=== PATIENT | female | born 1980 | race African-American/Black ===

== ENCOUNTER 2018-01-01 11:52 | Observation (INO) | payer OTHER, SELFPAY ==
[2018-01-01 12:26] LABS: Urine Blood TRACE (NEG); Urine Glucose NEGATIVE (NEG); Urine Protein 2+ (NEG); Urine Specific Gravity 1.025 (1.005-1.030)
[2018-01-01 12:26] LABS: Urine Specific Gravity 1.025 (1.005-1.030)
[2018-01-01] MEDS ORDERED: ONDANSETRON 4 MG/2 ML VIAL ONE (12:28)
[2018-01-01] MEDS ORDERED: NA CHLORIDE 0.9% 1,000 ML ONE (12:28)
[2018-01-01] MEDS ORDERED: FAMOTIDINE 20 MG/2 ML VIAL IV ONE (12:28)
[2018-01-01 12:31] LABS: Urine Bacteria 20-50 /HPF (<20); Urine RBC <5 /HPF (NONE SEEN)
[2018-01-01 12:32] LABS: Urine Amorphous Sediment TRACE /HPF (NONE SEEN); Urine Culture Reflex Order NOT NEEDED
[2018-01-01 12:47] LABS: Absolute Lymphocytes (CBC) 2.4 K/uL (0.7-4.9); Absolute Neutrophil 10.6 K/uL (1.8-8.0); Basophils % 0.4 % (0-1.3); Eosinophils % 0.2 % (0-4.4); Hematocrit 42.4 % (36.0-45.0); MCH 29.3 pg (27.0-35.0); MCV 86.1 fL (80-100); MPV 8.2 fL (7.6-11.3); Monocytes % 7.4 % (3.3-12.3); RBC Red Blood Cell Count 4.93 M/uL (3.86-4.86)
[2018-01-01] MEDS ORDERED: KETOROLAC 30 MG/ML INJ ONE (12:52)
[2018-01-01 13:26] LABS: Albumin 3.4 g/dL (3.4-5.0); Bilirubin Direct 0.2 mg/dL (0-0.2)
--- NOTE | 2018-01-01 14:01 | RAD REPORT ---
EXAM DESCRIPTION: CT - Abdomen Pelvis W Contrast - 01/01/2018 1:44 pm CLINICAL HISTORY: Abdominal pain with vomiting for 2 days COMPARISON: none. TECHNIQUE: Computed axial tomography of the abdomen pelvis was obtained. 100 cc Isovue-300 was admin istered intravenously. Oral contrast was not requested which limits evaluation of bowel. All CT scans are performed using dose optimization technique as appropriate and may include automated exposure control or mA/KV adjustment according to patient size. FINDINGS: The gallbladder is distended. It contains increased density which may represents sludge or stones. The gallbladder wall is thickened. Stranding is present within the adjacent fat. Couple of vague low to intermediate density areas are present within the right lobe of the liver mandi uring 1 centimeter. Spleen, pancreas, adrenal and kidneys appear unremarkable. There is no evidence of diverticulitis. The appendix is normal. Small umbilical hernia is present. Small amount of free fluid is noted. IMPRESSION: Distended gallbladder with thickened wall and stranding within the adjacent fat compatib le with cholecystitis. Increased density within the gallbladder could either represent sludge or stones.
[2018-01-01] MEDS ORDERED: CEFTRIAXONE/SWI 1gm 1 GM/10 ML SYR ONE (14:27)
[2018-01-01] MEDS ORDERED: METRONIDAZOLE 500mg IVPB 500 MG/100 ML BAG IV ONE (14:27)
--- NOTE | 2018-01-01 14:47 | RAD REPORT ---
EXAM DESCRIPTION: US - Abdomen Exam Limited - 01/01/2018 2:37 pm CLINICAL HISTORY: Abdominal pain. COMPARISON: CT January 01, 2018 FINDINGS: The gallbladder is distended with a thickened wall and multiple stones. The biliary tree is normal caliber. IMPRESSION: Cholelithiasis with cholecystitis
--- NOTE | 2018-01-01 15:04 | EDPHYS ---
Physician Documentation [facility] Name: Falguni Crenshaw Age: 37 yrs Sex: Female : 1980 Arrival Date: 01/01/2018 Time: 11:55 Bed 14 Private MD: None, None ED Physician Thomas Raygoza HPI: 01/01 12:07 This 37 yrs old Black Female presents to ER via Ambulatory with complaints of Back cp Pain, Nausea/Vomiting. 12:07 The patient presents with pain that is acute, with no known mechanism of injury. The cp symptoms are located in the mid back area. Onset: The symptoms/episode began/occurred 3 day(s) ago. 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 - Social history:: Smoking status: Patient/guardian denies using tobacco. - Ebola Screening: : Patient negative for fever greater than or equal to 101.5 degrees Fahrenheit, and additional compatible Ebola Virus Disease symptoms Patient denies exposure to infectious person Patient denies travel to an Ebola-affected area in the 21 days before illness onset No symptoms or risks identified at this time. ROS: 12:10 Constitutional: Negative for body aches, chills, fever, poor PO intake. cp 12:10 Eyes: Negative for injury, pain, redness, and discharge. cp 12:10 ENT: Negative for drainage from ear(s), ear pain, sore throat, difficulty swallowing, difficulty handling secretions. 12:10 Cardiovascular: Negative for chest pain, edema, palpitations. 12:10 Respiratory: Negative for cough, shortness of breath, wheezing. 12:10 Abdomen/GI: Positive for abdominal pain, nausea, vomiting, anorexia, of the epigastric area, Negative for diarrhea, constipation, black/tarry stool, rectal bleeding. 12:10 Back: Positive for pain at rest, of the mid back area. 12:10 : Negative for urinary symptoms, pelvic pain. 12:10 Skin: Negative for cellulitis, rash. 12:10 Neuro: Negative for altered mental status, headache, weakness. 12:10 All other systems are negative. Exam: 12:15 Constitutional: The patient appears in no acute distress, alert, awake, cp non-diaphoretic, non-toxic, well developed, well nourished. 12:15 Head/Face: Normocephalic, atraumatic. cp 12:15 Eyes: Periorbital structures: appear normal, Conjunctiva: normal, no exudate, no injection, Sclera: no appreciated abnormality, Lids and lashes: appear normal, bilaterally. 12:15 ENT: External ear(s): are unremarkable, Nose: is normal, Mouth: Lips: moist, Oral mucosa: pink and intact, moist, Posterior pharynx: is normal, airway is patent, no erythema, no exudate. 12:15 Neck: ROM/movement: is normal, is supple, without pain, no range of motions limitations, no nuchal rigidity. 12:15 Chest/axilla: Inspection: normal, Palpation: is normal, no crepitus, no tenderness. 12:15 Cardiovascular: Rate: normal, Rhythm: regular. 12:15 Respiratory: the patient does not display signs of respiratory distress, Respirations: normal, no use of accessory muscles, no retractions, no splinting, no tachypnea, labored breathing, is not present, Breath sounds: are clear throughout, no decreased breath sounds, no stridor, no wheezing. 12:15 Abdomen/GI: Inspection: abdomen appears normal, Bowel sounds: active, all quadrants, Palpation: soft, in all quadrants, mild abdominal tenderness, in the epigastric area and right upper quadrant, rebound tenderness, is not appreciated, involuntary guarding, is not appreciated. 12:15 Back: pain, that is moderate, of the right mid back, ROM is normal. 12:15 Skin: cellulitis, is not appreciated, no rash present. 12:15 Neuro: Orientation: to person, place \T\ time. Mentation: is normal, Cerebellar function: is grossly normal, Motor: moves all fours, strength is normal, Sensation: is normal. Vital Signs: 11:59 BP 123 / 80; Pulse 106; Resp 16; Temp 97.4; Pulse Ox 100% on R/A; Weight 95.25 kg; aj Height 5 ft. 4 in. (162.56 cm); Pain 7/10; 12:47 Pulse 90; Resp 18; Pulse Ox 100% on R/A; Pain 7/10; em 13:56 BP 111 / 99; Pulse 84; Resp 17; Pulse Ox 100% on R/A; tw2 15:01 BP 111 / 76; Pulse 83; Resp 18; Pulse Ox 100% on R/A; Pain 0/10; mg2 11:59 Body Mass Index 36.05 (95.25 kg, 162.56 cm) aj MDM: 12:01 Patient medically screened. cp 13:00 Differential diagnosis: ruptured disc, Ureterolithiasis cholelithiasis, UTI, cp pyelonephritis. 14:55 Data reviewed: vital signs, nurses notes, lab test result(s), radiologic studies, CT cp scan, ultrasound. 15:00 Counseling: I had a detailed discussion with the patient and/or guardian regarding: the cp historical points, exam findings, and any diagnostic results supporting the discharge/admit diagnosis, lab results, radiology results, the need for further work-up and treatment in the hospital. 15:00 Response to treatment: the patient's symptoms have markedly improved after treatment. 01/01 12:02 Order name: Urine Microscopic Only; Complete Time: 12:58 cp 01/01 14:12 Interpretation: Normal except: UWBC 5-10; UBACT 20-50; SQEPI 20-50. cp 01/01 12:21 Order name: Urine Dipstick--Ancillary (enter results); Complete Time: 12:58 ag 01/01 14:10 Interpretation: Normal except: UKET 1+; UBLD TRACE; UPROT 2+; UESTR TRACE. cp 01/01 12:21 Order name: Amylase, Serum; Complete Time: 14:09 cp 01/01 12:21 Order name: Basic Metabolic Panel; Complete Time: 14:09 cp 01/01 14:09 Interpretation: Normal except: K 3.0; GFR 68. cp 01/01 12:21 Order name: CBC with Diff; Complete Time: 12:58 cp 01/01 14:11 Interpretation: Normal except: WBC 14.1; RBC 4.93; RDW 15.3; CAILIN% 75.0; NEUT A 10.6. cp 01/01 12:21 Order name: Creatinine for Radiology; Complete Time: 14:09 cp 01/01 12:21 Order name: Hepatic Function; Complete Time: 14:09 cp 01/01 14:10 Interpretation: Normal except: GLOB 4.6; A/G 0.7. cp 01/01 12:21 Order name: Lipase; Complete Time: 14:09 cp 01/01 12:23 Order name: Urine --Ancillary (enter results) ag 01/01 12:59 Order name: CT Abd/Pelvis - W/Contrast: no oral contrast; Complete Time: 14:09 cp 01/01 14:13 Order name: US Abdomen Limited; Complete Time: 14:50 cp 01/01 12:02 Order name: Urine Dipstick-Ancillary (obtain specimen); Complete Time: 12:15 cp 01/01 12:02 Order name: Urine Test (obtain specimen); Complete Time: 12:15 cp 01/01 12:21 Order name: IV Saline Lock; Complete Time: 12:50 cp 01/01 12:21 Order name: Labs collected and sent; Complete Time: 12:51 cp 01/01 14:13 Order name: NPO; Complete Time: 14:41 cp Administered Medications: 12:40 Drug: NS 0.9% 1000 ml Route: IV; Rate: 1 bolus; Site: right antecubital; em 14:00 Follow up: Response: No adverse reaction; IV Status: Completed infusion; IV Intake: tw2 1000ml 12:46 Not Given (Patient Refused): Pepcid 20 mg IVP once em 12:46 Not Given (Patient Refused): Zofran 4 mg IVP once; over 2 minutes em 12:50 Drug: TORadol 30 mg Route: IVP; Site: right antecubital; tw2 14:20 Follow up: Response: No adverse reaction; Pain is decreased tw2 14:25 Drug: Rocephin - (cefTRIAXone) 1 grams {Note: IVP available only, provider aware..} tw2 Route: IVPB; Infused Over: 5 mins; Site: right antecubital; 14:30 Follow up: Response: No adverse reaction; IV Status: Completed infusion tw2 14:30 Drug: metroNIDAZOLE 500 mg Volume: 100 ml; Route: IVPB; Infused Over: 30 mins; Site: tw2 right antecubital; 15:25 Follow up: Response: No adverse reaction; IV Status: Completed infusion mg2 15:02 Not Given (Physician Discretion): Potassium Chloride 40 mEq PO once cp 15:11 Drug: Potassium Chloride 20 mEq Route: IV; Rate: calculated rate; Site: right mg2 antecubital; 15:25 Follow up: Response: No adverse reaction; IV Status: Infusion continued upon admission mg2 Disposition: 15:36 Co-signature as Attending Physician, Thomas Raygoza MD. rn Disposition: 01/01/18 15:04 Hospitalization ordered by Sea Shepard for Observation. Preliminary diagnosis is Cholecystitis. - Bed requested for Operating Room. - Status is Observation. mg2 - Condition is Stable. - Problem is new. - Symptoms have improved. UTI on Admission? No Signatures: Dispatcher [employer] EDMS Promise Guzman, RN RN aj Chance Jensen, RACK PUSHER RACK PUSHER em Thomas Raygoza MD MD rn Page, Corey, PA PA cp Mimi Luis RN RN tw2 Braeden Torres RN RN mg2 Corrections: (The following items were deleted from the chart) 15:25 15:04 Hospitalization Ordered by Sea Shepard MD for Observation. Preliminary diagnosis cp is Cholecystitis. Bed requested for Telemetry/MedSurg (observation). Status is Observation. Condition is Stable. Problem is new. Symptoms have improved. UTI on Admission? No. cp 15:28 15:25 01/01/2018 15:04 Hospitalization Ordered by Sea Shepard MD for Observation. mg2 Preliminary diagnosis is Cholecystitis. Bed requested for Operating Room. Status is Observation. Condition is Stable. Problem is new. Symptoms have improved. UTI on Admission? No. cp
--- NOTE | 2018-01-01 15:04 | ER ---
Nurse's Notes [facility] Name: Falguni Crenshaw Age: 37 yrs Sex: Female : 1980 Arrival Date: 01/01/2018 Time: 11:55 Bed 14 Private MD: None, None Diagnosis: Cholecystitis Presentation: 01/01 11:57 Presenting complaint: Patient states: Low back pain with intermittent vomiting for 2 aj days. Patient also reports epigastric discomfort. Transition of care: patient was not received from another setting of care. Onset of symptoms was December 30, 2017. Risk Assessment: Do you want to hurt yourself or someone else? Patient reports no desire to harm self or others. Initial Sepsis Screen: Does the patient meet any 2 criteria? No. Patient's initial sepsis screen is negative. Does the patient have a suspected source of infection? No. Patient's initial sepsis screen is negative. Care prior to arrival: None. 11:57 Method Of Arrival: Ambulatory aj 11:57 Acuity: NILESH 3 aj Triage Assessment: 11:59 General: Appears in no apparent distress. comfortable, Behavior is calm, cooperative, aj appropriate for age. Pain: Complains of pain in low back area and epigastric area Pain currently is 7 out of 10 on a pain scale. Neuro: Level of Consciousness is awake, alert, obeys commands, Oriented to person, place, time, situation, Appropriate for age. Cardiovascular: Capillary refill < 3 seconds in bilateral fingers Patient's skin is warm and dry. Respiratory: Airway is patent Respiratory effort is even, unlabored, Respiratory pattern is regular, symmetrical. GI: Reports epigastric pain, nausea, vomiting. Derm: Skin is intact, is healthy with good turgor, Skin is pink, warm \\T\\ dry. normal. Musculoskeletal: Circulation, motion, and sensation intact. Range of motion: Reports pain in low back area. 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 - Social history:: Smoking status: Patient/guardian denies using tobacco. - Ebola Screening: : Patient negative for fever greater than or equal to 101.5 degrees Fahrenheit, and additional compatible Ebola Virus Disease symptoms Patient denies exposure to infectious person Patient denies travel to an Ebola-affected area in the 21 days before illness onset No symptoms or risks identified at this time. Screenin:43 Abuse screen: Denies threats or abuse. Nutritional screening: No deficits noted. em Tuberculosis screening: No symptoms or risk factors identified. Fall Risk None identified. Assessment: 12:15 General: Appears in no apparent distress. comfortable, Behavior is calm, cooperative. em Pain: Complains of pain in low back area Pain does not radiate. Pain began 2-3 days ago. Neuro: Level of Consciousness is awake, alert, obeys commands, Oriented to person, place, time. Cardiovascular: Denies chest pain, shortness of breath, Capillary refill < 3 seconds Patient's skin is warm and dry. Respiratory: Airway is patent Respiratory effort is even, unlabored, Respiratory pattern is regular, symmetrical. GI: Abdomen is round Reports nausea, vomiting, 1 time today Patient currently denies abdominal pain, diarrhea. : Denies burning with urination. EENT: No signs and/or symptoms were reported regarding the EENT system. Derm: Skin is intact, Skin is pink, warm \\T\\ dry. Musculoskeletal: Range of motion: intact in all extremities. 12:40 Reassessment: Patient appears in no apparent distress at this time. pt refuse Zofran em and Pepcid, states "I don't feel that I need it now. I would like something for pain" rates pain 7/10 currently, ERNST Goldman notified, new medication orders received. 13:57 Reassessment: Patient appears in no apparent distress at this time. No changes from tw2 previously documented assessment. Patient and/or family updated on plan of care and expected duration. Pain level reassessed. Patient is alert, oriented x 3, equal unlabored respirations, skin warm/dry/pink. Patient states feeling better. Patient states symptoms have improved. 14:21 Reassessment: US at bedside at this time. tw2 Vital Signs: 11:59 BP 123 / 80; Pulse 106; Resp 16; Temp 97.4; Pulse Ox 100% on R/A; Weight 95.25 kg; aj Height 5 ft. 4 in. (162.56 cm); Pain 7/10; 12:47 Pulse 90; Resp 18; Pulse Ox 100% on R/A; Pain 7/10; em 13:56 BP 111 / 99; Pulse 84; Resp 17; Pulse Ox 100% on R/A; tw2 15:01 BP 111 / 76; Pulse 83; Resp 18; Pulse Ox 100% on R/A; Pain 0/10; mg2 11:59 Body Mass Index 36.05 (95.25 kg, 162.56 cm) ED Course: 11:55 Patient arrived in ED. mr 11:55 None, None is Private Physician. mr 11:59 Triage completed. aj 11:59 Jones Poe PA is PHCP. cp 11:59 Thomas Raygoza MD is Attending Physician. cp 11:59 Arm band placed on right wrist. Patient placed in an exam room. aj 12:15 Urine collected: clean catch specimen, tamara colored. dh3 12:22 Chance Jensen LVN is Primary Nurse. em 12:35 Initial lab(s) drawn, by ak, sent to lab. Inserted saline lock: 20 gauge in right em antecubital area, using aseptic technique. Blood collected. Patient maintains SpO2 saturation greater than 95% on room air. 12:43 Patient has correct armband on for positive identification. Pulse ox on. NIBP on. em 12:50 Primary Nurse role handed off by Chance Jensen LVN tw2 12:50 Mimi Luis RN is Primary Nurse. tw2 13:44 CT Abd/Pelvis - W/Contrast: no oral contrast In Process Unspecified. EDMS 14:32 US Abdomen Limited In Process Unspecified. EDMS 14:32 Ultrasound completed. Patient tolerated well. lc3 15:03 Sea Shepard MD is Hospitalizing Provider. cp 15:03 Report given to JES Tsang. tw2 15:27 No provider procedures requiring assistance completed. Patient admitted, IV remains in mg2 place. Administered Medications: 12:40 Drug: NS 0.9% 1000 ml Route: IV; Rate: 1 bolus; Site: right antecubital; em 14:00 Follow up: Response: No adverse reaction; IV Status: Completed infusion; IV Intake: tw2 1000ml 12:46 Not Given (Patient Refused): Pepcid 20 mg IVP once em 12:46 Not Given (Patient Refused): Zofran 4 mg IVP once; over 2 minutes em 12:50 Drug: TORadol 30 mg Route: IVP; Site: right antecubital; tw2 14:20 Follow up: Response: No adverse reaction; Pain is decreased tw2 14:25 Drug: Rocephin - (cefTRIAXone) 1 grams {Note: IVP available only, provider aware..} tw2 Route: IVPB; Infused Over: 5 mins; Site: right antecubital; 14:30 Follow up: Response: No adverse reaction; IV Status: Completed infusion tw2 14:30 Drug: metroNIDAZOLE 500 mg Volume: 100 ml; Route: IVPB; Infused Over: 30 mins; Site: tw2 right antecubital; 15:25 Follow up: Response: No adverse reaction; IV Status: Completed infusion mg2 15:02 Not Given (Physician Discretion): Potassium Chloride 40 mEq PO once cp 15:11 Drug: Potassium Chloride 20 mEq Route: IV; Rate: calculated rate; Site: right mg2 antecubital; 15:25 Follow up: Response: No adverse reaction; IV Status: Infusion continued upon admission mg2 Intake: 14:00 IV: 1000ml; Total: 1000ml. tw2 Outcome: 15:04 Decision to Hospitalize by Provider. cp 15:26 Admitted to OR accompanied by nurse, via wheelchair, on monitor. mg2 15:26 Admitted to OR Report called to OR Nurse 15:26 Condition: stable 15:26 Instructed on the need for admit, Demonstrated understanding of instructions. 15:28 Patient left the ED. mg2 Signatures: Dispatcher [employer] Promise Dave, RN Anette Theodore mr Jensen, Chance, SPECIAL POPULATION PARAPROFESSIONAL SPECIAL POPULATION PARAPROFESSIONAL Jones Schumacher PA PA cp Jhon Vinson Tara, RN RN tw2 Wendy Quezada [facility] Braeden Torres RN RN mg2
[2018-01-01] MEDS ORDERED: POTASSIUM CL SA 10 MEQ TAB PO ONE (15:08)
[2018-01-01] MEDS ORDERED: MORPHINE 4 MG/ML SYR IV PRN (15:08)
[2018-01-01] MEDS ORDERED: ONDANSETRON 4 MG/2 ML VIAL IV PRN ×2 (15:08→17:16)
[2018-01-01] MEDS ORDERED: KCL 20 MEQ/100 mL IVPB 20 MEQ/100 ML BAG IV ONE (15:09)
[2018-01-01] MEDS ORDERED: Ringers Lactate 1,000 ML IV ONE (15:39)
[2018-01-01] MEDS ORDERED: SUCCINYLCHOLINE 20 MG/ML (10 ML) IV ONE (15:59)
[2018-01-01] MEDS ORDERED: NA CHLORIDE 0.9% 1,000 ML IV SCH (16:00)
[2018-01-01] MEDS ORDERED: PROPOFOL 200 MG/20 ML VIAL IV ONE (16:03)
[2018-01-01] MEDS ORDERED: MIDAZOLAM HCL 2 MG/2 ML INJ ONE (16:03)
[2018-01-01] MEDS ORDERED: FENTANYL CITR 250 MCG/5 ML ONE (16:03)
[2018-01-01] MEDS ORDERED: ROCURONIUM 50 MG/5 ML VIAL IV ONE (16:03)
[2018-01-01] MEDS ORDERED: GLYCOPYRROLATE 0.2 MG/ML SYR ONE ×2 (16:58)
[2018-01-01] MEDS ORDERED: NEOSTIGMINE 1 MG/ML -5 ML SYRINGE ONE (16:58)
[2018-01-01] MEDS ORDERED: ONDANSETRON HCL 40 MG/20 ML VIAL ONE (17:06)
--- NOTE | 2018-01-01 17:12 | P.OP ---
Preoperative diagnosis: Acute Cholecystitis and Cholelethiasis Postoperative diagnosis: same Primary procedure: Lap Mabel Anesthesia: General Estimated blood loss: min Specimen: GB Findings: as above Complications: None Transferred to: Recovery Room Condition: Good
[2018-01-01] MEDS ORDERED: HYDROMORPHONE HCL 1 MG/ML INJ IV PRN (17:16)
[2018-01-01] MEDS ORDERED: CEFOXITIN 1 GM in NA CHLORIDE 0.9% 100 ML IVPB SCH (18:00)
[2018-01-01 18:52] VITALS: BMI 37.8
[2018-01-01] MEDS: CEFOXITIN/SWI 1gm 1 GM/10 ML SYR IVP SCH (18:55)
--- NOTE | 2018-01-01 20:58 | PREOPHP ---
Date of Admission: 01/01/2018 Chief Complaint: Abdominal pain. History Of Present Illness: The patient is a 37-year-old female, who comes in with 3-day history of right upper quadrant back pain associated with nausea, vomiting, bloating, belching, and heartburn. Denies diarrhea, constipation, blood in her stool. No dysuria or hematuria. No sore throat, runny n ose, cough, headaches, dizziness, chest pain; just some chills and fever subjectively. Review of Systems: Otherwise, unremarkable. Past Medical History: Negative. Past Surgical History: Negative. Allergies: NO ALLERGIES. Social History: The patient denies smoking or drinking. Family History: Negative. Physical Examination: Vital Signs: Stable. Afebrile. General: Currently, awake, alert, and oriented x3. Head and Neck: No evidence of icterus. Cranial nerves 2 through 12 are grossly within normal limits . No neck masses. No JVD. Throat clear. Neck is supple. Chest: Clear. Heart: S1, S2. Abdomen: Soft, nondistended. Tenderness in the right upper quadrant. No peritonitis. Extremities: Adequately perfused. Nontender. Neuro: Nonfocal. Diagnostic Data: CT scan of the abdomen and pelvis as well as the ultrasound is consistent with acut e cholecystitis and cholelithiasis. Laboratory Data: White count is 14.1. LFTs, amylase, lipase are within normal limits. Assessment: Acute cholecystitis and cholelithiasis. Plan: Admit n.p.o., IV fluid, IV antibiotic, to the OR for lap maria guadalupe, possible open. The patient an d family understand the risks, benefits, and alternatives and agrees to procedure. /MODL Voice ID: [id number]
[2018-01-02] MEDS: CEFOXITIN/SWI 1gm 1 GM/10 ML SYR IVP SCH ×2 (00:13→05:59)
--- NOTE | 2018-01-02 03:52 | OP ---
Date of Procedure: 01/01/2018 Surgeon: Sea Shepard MD Preoperative Diagnoses: Acute cholecystitis and cholelithiasis. Postoperative Diagnoses: Acute cholecystitis and cholelithiasis. Procedure: Laparoscopic cholecystectomy. Estimated Blood Loss: Minimal. Specimen: Gallbladder. Findings: As above. Anesthesia: General. Complications: None. Disposition: The patient tolerated the procedure in stable condition and was taken to Recovery in go od general condition. Procedure In Detail: The patient was brought to the OR and placed in supine position. General anest hesia was begun. The patient was prepped and draped in the usual sterile fashion. Marcaine 0.5% was infiltrated locally. A 15-blade was used to make a 2-cm supraumbilical midline incision. Subcutane ous tissue was divided. The fascia was identified and divided. A #1 Vicryl stay suture was placed. Peritoneal cavity was entered with sharp and blunt dissection. A 12-mm trocar was placed into the p eritoneal cavity under direct vision. Pneumoperitoneum was established, and then three 5-mm trocars were placed, one in the epigastrium just to the right of midline and two in the right subcostal regio n. Laparoscopy revealed distention of the gallbladder which was aspirated, and then fundus was retra cted superiorly. There were some adhesions, taken down with sharp and blunt dissection. Bleeding wa s controlled with cautery. Then, the fundus and infundibulum were identified, retracted inferolatera lly. Cystic duct and cystic artery were clearly identified with blunt dissection. Clips were placed . Both structures were divided. Cautery was used to remove the gallbladder from the liver bed. The gallbladder was very, very large; and therefore, it was placed in the EndoCatch bag and the fascial incision had to be extended to allow for evacuation of the gallbladder, which was done safely, and th en pneumoperitoneum was reestablished. Right upper quadrant was irrigated. Effluent was clear. No evidence of bleeding or bowel injury or bile leakage appreciated. Subsequently, all trocars were rem bella under direct vision. Stay sutures were tied to each other to reapproximate the fascial defect, and the larger opening was also closed with extra #1 Vicryl sutures. Then, complete coverage of the fascial defect was accomplished. Wound was irrigated and bleeding controlled with cautery. A 3-0 ch romic was used to approximate the subcutaneous tissue and khris used to close the skin. Sterile dr essing was applied. The patient was awakened and taken to Recovery in good general condition. JOELLE/CHRISTIAN Voice ID: [id number] Report ID: [id number]
[2018-01-02] MEDS: HYDROCODONE/APAP 7.5/325 MG TAB PO PRN ×2 (04:15→16:24)
[2018-01-02 05:09] LABS: Absolute Monocytes 0.8 K/uL (0.1-1.3); Absolute Neutrophil 10.2 K/uL (1.8-8.0); Basophils % 0.5 % (0-1.3); Eosinophils % 0.2 % (0-4.4); Hematocrit 37.1 % (36.0-45.0); MCH 30.1 pg (27.0-35.0); MCV 86.4 fL (80-100); MPV 8.3 fL (7.6-11.3); Monocytes % 6.3 % (3.3-12.3); RBC Red Blood Cell Count 4.29 M/uL (3.86-4.86)
[2018-01-02 05:25] LABS: Bilirubin Direct 0.3 mg/dL (0-0.2); Bilirubin Total 1.2 mg/dL (0.2-1.0); Potassium 3.2 mmol/L (3.5-5.1)
[2018-01-02] MEDS ORDERED: POTASSIUM 25 MEQ EFFERV TAB PO ONE (06:12)
[2018-01-02 08:55] VITALS: O2SAT 94
[2018-01-02 12:55] VITALS: BP 119/64; TEMP 97
== END 2018-01-02 16:46 | disposition home or self-care (01) ==
LOC: ER 11:52 → UNDOADMOB 15:07 → OR 15:07 → ERHOLD 15:07 → 2ND 15:08
PROVIDERS: ADMIT Surgery; ATTEND Surgery
PROC: 0FT44ZZ Resection of Gallbladder, Percutaneous Endoscopic Approach (ICD-10-PCS; principal; 2018-01-01 15:00)
DX: K80.00 Calculus of gallbladder with acute cholecystitis without obstruction (principal); E66.9 Obesity, unspecified; Z68.37 Body mass index [BMI] 37.0-37.9, adult
CPT/HCPCS: 36415; 74177; 76705; 80048; 80076; 81003; 81015; 81025; 82150; 83690; 84132; 85025; 88304; 96361; 96365; 96375; 99285; G0378; J0330; J0696; J2250; J2405; J2710; J7030; Q9967

== ENCOUNTER 2020-05-05 12:34 | Observation (INO) | payer BC, SELFPAY ==
--- OUTSIDE RECORDS SUMMARY | 2020-05-05 12:36 | XMS REPORT | Summary of Care ---
:1980 Author Organization [facility] Address [address] [place] [address] Care Team Providers Name Role Phone Pcp, Patient Does Not Have A Primary Care Provider +1-000-00 0-0000 Reason for Visit Reason Comments VAGINAL ITCHING Encounter Details Date Type Department Care Team Description 03/10/2020 Office Visit [facility] Women's VanIsi huggins Tric homoniasis (Primary Dx); Healthcare- [place] PA-C Vaginal discharge; [address] [facility] [address], [address] Screening examination for STD (sexually transmitted disease) [place], [place] [address] [address] [place], [place] [phone] [address] Allergies No Known Allergiesdocumented as of this encounter (statuses as of 03/10/2020) Medications Medication Sig Dispensed Refills Start Date End Date Status Ibuprofen (ADVIL Take 200 mg by 0 Active LIQUI-GEL) 200 mg mouth as needed. capsule miconazole 100 mg Insert 1 7 Suppository 0 08/06/2019 Active vaginal Suppository into suppositoryIndicatio vagina at ns: Vaginal bedtime. discharge, Itching metroNIDAZOLE 500 mg Take 1 tablet by 14 tablet 0 08/14/2019 Active tabletIndications: mouth every 12 Trichomoniasis (twelve) hours. miconazole 2 % Insert 1 45 g 0 03/10/2020 Acti ve vaginal Applicator into creamIndications: vagina at Itching bedtime. documented as of this encounter (statuses as of 03/10/2020) Active Problems Problem Noted Date Morbid obesity with body mass index of 40.0-49.9 03/10 documented as of this encounter (statuses as of 03/10/2020) Social History Tobacco Use Types Packs/Day Years Used Date Never Smoker Smokeless Tobacco: Never Used Alcohol Use Drinks/Week oz/Week Comments Not Currently 0 Standard drinks or equivalent 0.0 Sex Assigned at Date Recorded Not on file documented as of this encounter Last Filed Vital Signs Vital Sign Reading Time Taken Comments Blood Pressure 127/81 03/10/2020 2:44 PM CDT Pulse 91 03/10/2020 2:44 PM CDT Temperature 36.8 C (98.2 F) 03/10/2020 2:44 PM CDT Respiratory Rate 18 03/10/2020 2:44 PM CDT Oxygen Saturation - - Inhaled Oxygen Concentration - - Weight 113.4 kg (250 lb) 03/10/2020 2:44 PM CDT Height 165.1 cm (5' 5") 03/10/2020 2:44 PM CDT Body Mass Index 41.6 03/10/2020 2:44 PM CDT documented in this encounter Progress Notes Isi Montoya PA-C - 03/10/2020 2:15 PM CDT Chief complaint: Chief Complaint Patient presents with VAGINAL ITCHING HPI Falguni Crenshaw is a 39 year old female coming in concerned about vaginal itching and vaginaldischarge. Patient reports having some vaginal discomfort and some pelvic pain. Patient reports vaginal discharge is pink and she has noticed some spotting. Patient reports she is not suppose to be on her period. Patient was treated for trich on 08/13/2019 and partner was also treated. Patient has not been back for ANNE. Patient denies any dysuria, hematuria. Patient is sexually active and reports using condoms. Patient denies any new soaps, detergents, creams, body washes. Patient denies any excessive sweating. Patient reports when she wipes she notices blood/spotting. Histories OB History Para Term AB Living 4 2 1 1 2 2 SAB TAB Ectopic Multiple Live Births 2 2 # Outcome Date GA Lbr Arthur/2nd Weight Sex Delivery Anes PTL Lv 4 1927 [place] 3 SAB 2 SAB 1 Term [place] Past Medical History: Diagnosis Date Anemia Family History Problem Relation Age of Onset No Significant Medical Problems Mother Hypertension Father Cancer Paternal Aunt unknown Other - see comments Paternal Aunt Lupus Cancer Paternal Grandmother unknown Family Status Relation Name Status Mo Alive Fa Alive PAunt (Not Specified) PGMo (Not Specified) Past Surgical History: Procedure Laterality Date CHOLECYSTECTOMY 2018 Social History Socioeconomic History Marital status: Single Spouse name: Not on file Number of children: Not on file Years of education: 14 Highest education level: Not on file 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 Social Needs Financial resource strain: Not on file Food insecurity Worry: Not on file Inability: Not on file Transportation needs Medical: Not on file Non-medical: Not on file Tobacco Use Smoking status: Never Smoker Smokeless tobacco: Never Used Substance and Sexual Activity Alcohol use: Not Currently Alcohol/week: 0.0 standard drinks Drug use: No Sexual activity: Yes Partners: Male control/protection: Condom Lifestyle Physical activity Days per week: Not on file Minutes per session: Not on file Stress: Not on file Relationships Social connections Talks on phone: Not on file Gets together: Not on file Attends confucianist service: Not on file Active member of club or organization: Not on file Attends meetings of clubs or organizations: Not on file Relationship status: Not on file Intimate partner violence Fear of current or ex partner: Not on file Emotionally abused: Not on file Physically abused: Not on file Forced sexual activity: Not on file Other Topics Concern Service Not Asked Blood Transfusions Not Asked Caffeine Concern No Comment: D/C Carbonated drinks two months ago Occupational Exposure Not Asked Hobby Hazards Not Asked Sleep Concern Not Asked Stress Concern Not Asked Weight Concern Not Asked Special Diet Not Asked Back Care Not Asked Exercise Not Asked Bike Helmet Not Asked Seat Belt Yes Self-Exams No Social History Narrative Denies any physical abuse in the home No animals in the home Buddhist Preference Orthodoxy Social History Substance and Sexual Activity Sexual Activity Yes Partners: Male control/protection: Condom Labs none Radiology none Allergies Falguni has No Known Allergies. Medications Falguni has a current medication list which includes the following prescription(s): metronidazole, miconazole, and ibuprofen. Review of Systems Constitutional: Negative for appetite change, fatigue and fever. HENT: Negative for rhinorrhea and sore throat. Eyes: Negative for pain and itching. Respiratory: Negative for cough, chest tightness and shortness of breath. Breasts: Negative for discharge, mass and pain. Cardiovascular: Negative for chest pain, palpitations and leg swelling. Gastrointestinal: Negative for abdominal pain, constipation, diarrhea and nausea. Genitourinary: Positive for vaginal bleeding, vaginal pain and pelvic pain. Negative for bladder incontinence, dysuria, vaginal discharge and difficulty urinating. Musculoskeletal: Negative for gait problem and myalgias. Skin: Negative for rash. Neurological: Negative for dizziness and headaches. Psychiatric/Behavioral: Negative for suicidal ideas. The patient is not nervous/anxious. Endocrine: Negative for hair loss. BP 127/81 (BP Location: Left arm, Patient Position: Sitting, BP CUFF SIZE: Adult Large) | Pulse 91| Temp 36.8 C (98.2 F) (Oral) | Resp 18 | Ht 5' 5" (1.651 m) | Wt 250 lb (113.4 kg) | LMP 02/11/2020 (Within Days) | BMI 41.60 kg/m Pregravid BMI: Could not be calculated Physical Exam Vitals reviewed. Constitutional: She is oriented to person, place, and time. Her body habitus is obese. Neck: No mass. No thyromegaly palpated. Cardiovascular: Regular rate and rhythm. Pulmonary/Chest: Normal inspiratory effort. Abdominal: Abdomen is soft. No tenderness present. No hernia palpated or inspected. Neuro/Psychiatric: She has a normal mood and affect. She is oriented to person, place, and time. Skin: Skin normal. No lesion and no rash present. External genitalia: Normal external genitalia appropriate for age. No labial lesion. Urethral meatus: Normal urethral meatus Urethra: Normal urethra. Bladder: Normal bladder Vagina:Vaginal discharge (bloody/pink) found. Cervix: Normal cervix. No tenderness and no discharge present. Uterus: Uterus is non-tender. Normal uterus Adnexa: Right adnexa without tenderness or mass. Left adnexa without tenderness or mass. Normal leftadnexa and normal right adnexa Assessment/Plan Trichomoniasis (primary encounter diagnosis) Plan: GALV ONLY - VAGINAL PATHOGENS BY NUCLEIC ACID TESTING ANNE collected today Vaginal discharge Plan: GALV ONLY - VAGINAL PATHOGENS BY NUCLEIC ACID TESTING Itching Plan: GALV ONLY - VAGINAL PATHOGENS BY NUCLEIC ACID TESTING, miconazole 2 % vaginal cream Washing and hygiene discussed. Screening examination for STD (sexually transmitted disease) Plan: GC & CHLAMYDIA AMPLIFIED ASSAY Return to clinic prn WWE. Discussed treatment options. Medications as ordered. Reviewed patient instructions and provided printed copy. This visit did not involve counseling and coordination that comprised more than 50% of the visit time. Isi Montoya PA-C 03/10/2020 3:22 PM documented in this encounter Plan of Treatment Name Type Priority Associated Diagnoses Order S chedule GALV ONLY - VAGINAL LAB Routine Trichomonias is Ordered: 03/10/2020 PATHOGENS BY NUCLEIC Vaginal dis charge ACID TESTING Itching GC & CHLAMYDIA AMPLIFIED LAB Routine Screening examin ation for Expected: 03/10/2020, ASSAY STD (sexually transmitted Ex nicole: 03/10/2021 disease) Health Maintenance Due Date Last Done Comments VARICELLA VACCINES (1 of 2 - 1982 2-dose childhood series) Depression Screening 1993 DTaP,Tdap,and Td Vaccines (1 - 2000 Tdap) PAP SMEAR 2002 INFLUENZA VACCINE (#1) 2020 PNEUMOCOCCAL 0-64 YEARS COMBINED Aged Out No longer eligible based on SERIES patient's age to complete this topic documented as of this encounter Results Not on filedocumented in this encounter Visit Diagnoses Diagnosis Trichomoniasis - Primary Trichomoniasis, unspecified Vaginal discharge Leukorrhea, not specified as infective Itching Unspecified pruritic disorder Screening examination for STD (sexually transmitted disease) Screening examination for venereal disea se documented in this encounter Insurance Payer Benefit Plan Subscriber ID Effective Dates Phone Address Type / Group BCBS OF [facility] [id number] 2019-Prese [phone] [address] PPO/POS [facility] 7 [id number] [place] [address] documented as of this encounter
--- OUTSIDE RECORDS SUMMARY | 2020-05-05 12:36 | XMS REPORT | Summary of Care ---
:1980 Author Organization [facility] Address [address] [place] [address] Care Team Providers Name Role Phone Pcp, Patient Does Not Have A Primary Care Provider +1-000-00 0-0000 Reason for Visit Reason Comments VAGINAL ITCHING Encounter Details Date Type Department Care Team Description 03/10/2020 Office Visit [facility] Women's VanIsi huggins Tric homoniasis (Primary Dx); Healthcare- [place] PA-C Vaginal discharge; [facility] [address], [address] Screening examination for STD (sexually transmitted disease) [place], [place] [address] [address] [place], [place] [phone] [address] Allergies No Known Allergiesdocumented as of [...] on file 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 Social Needs Financial resource strain: Not on [...] file Gets together: Not on file Attends christianity service: Not on file Active member of [...] the home No animals in the home Hoahaoism Preference Shinto Social History Substance and Sexual Activity Sexual [...] documented in this encounter Plan of Treatment Date Type Specialty Care Team Description 03/23/2020 Office Visit Obstetrics & Gynecology Isi Montoya PA-C [facility] [place] [phone] Name Type Priority Associated Diagnoses Order S [...] Phone Address Type / Group BCBS OF [facility] [id number] 2019-Prese [phone] [address] PPO/POS [place] [id number] [place] [address] documented as of this encounter
--- OUTSIDE RECORDS SUMMARY | 2020-05-05 12:36 | XMS REPORT | Continuity of Care Document ---
:1980 Author Organization [facility] t Address [address] [place] [address] Care Team Providers Name Role Phone Nurse, Women's Health Attending Clinician Unavailable Jan SINGER Attending Clinician Problems This patient has no known problems. Allergies, Adverse Reactions, Alerts This patient has no known allergies or adverse reactions. Medications This patient has no known medications. Procedures This patient has no known procedures. Encounters Start End Encounter Admission Attending Care Care Encounter Source Date/Time Date/Time Type Type Clinicians Facility Department ID 2020-04-11 2020-04-11 Nurse Nurse, [facility] [id number] 09:00:01 09:31:37 Visit [facility] Abigail [id number] [facility] [id number] Heidi [phone] [address] 2020-03-14 2020-03-14 Case MISAEL Montoya [id number] 00:00:00 00:00:00 Management Isi Abigail [id number] [place] [id number] Heidi [phone] [address] 2020-03-10 2020-03-10 Office MISAEL Montoya [id number] 14:19:48 15:32:58 Visit Isi Abigail [id number] [place] [id number] Profalejandra [phone] [address] 2020-03-10 2020-03-10 Telephone MISAEL Montoya [id number] 00:00:00 00:00:00 Isi Abigail [id number] Nick [id number] [facility] [phone] [facility] [address] Building Results This patient has no known results.
--- OUTSIDE RECORDS SUMMARY | 2020-05-05 12:36 | XMS REPORT | Summary of Care ---
:1980 Author Organization [facility] Address [address] [place] [address] Care Team Providers Name Role Phone Pcp, Patient Does Not Have A Primary Care Provider +1-000-00 0-0000 Reason for Visit Reason Comments New Medication Encounter Details Date Type Department Care Team Description 03/14/2020 Case Management [facility] Isi Montoya N [facility] [address], [address] [place] [address] [place] [address] [place] [address] [phone] Allergies No Known Allergiesdocumented as of this encounter (statuses as of 03/14/2020) Medications Medication Sig Dispensed Refills Start Date [...] Applicator into creamIndications: vagina at Itching bedtime. metroNIDAZOLE 500 mg Take 4 tablets by 4 tablet 0 03/14/2020 Active tabletIndications: mouth once now 0 Trichomoniasis for 1 dose. documented as of this encounter (statuses as of 03/14/2020) Active Problems Problem Noted Date Morbid obesity with body mass index of 40.0-49.9 03/10 documented as of this encounter (statuses as of 03/14/2020) Social History Tobacco Use Types Packs/Day Years Used Date Never Smoker Smokeless Tobacco: Never Used Alcohol Use Drinks/Week oz/Week Comments Not Currently 0 Standard drinks or equivalent 0.0 Sex Assigned at Date Recorded Not on file documented as of this encounter Last Filed Vital Signs Not on filedocumented in this encounter Plan of Treatment Health Maintenance Due Date Last Done Comments [...] Diagnoses Diagnosis Trichomoniasis - Primary Trichomoniasis, unspecified documented in this encounter Insurance Payer Benefit Plan Subscriber ID Effective Dates Phone Address Type / Group BCBS OF [facility] [id number] 2019-Heather [phone] [address] PPO/POS [place] [id number] [place] [address] documented as of this encounter
--- OUTSIDE RECORDS SUMMARY | 2020-05-05 12:37 | XMS REPORT | Summary of Care ---
:1980 Author Organization [facility] Address [address] [place] [address] Care Team Providers Name Role Phone Pcp, Patient Does Not Have A Primary Care Provider +1-000-00 0-0000 Reason for Visit Reason Comments Assessment Encounter Details Date Type Department Care Team Description 03/10/2020 Telephone [facility] Women's Mona Montoya PA-C Assessment Healthcare- [address] [place] [address] [address] [address] [place] [address] [place] [address] [phone] Allergies No Known Allergiesdocumented as of this encounter (statuses as of 03/18/2020) Medications Medication Sig Dispensed Refills Start Date [...] as of this encounter (statuses as of 03/18/2020) Active Problems Problem Noted Date Morbid obesity with body mass index of 40.0-49.9 03/10 documented as of this encounter (statuses as of 03/18/2020) Social History Tobacco Use Types Packs/Day Years Used Date Never Smoker Smokeless Tobacco: Never Used Alcohol Use Drinks/Week oz/Week Comments Not Currently 0 Standard drinks or equivalent 0.0 Sex Assigned at Date Recorded Not on file documented as of this encounter Last Filed Vital Signs Not on filedocumented in this encounter Miscellaneous Notes Telephone Encounter - Renea Dobbins - 03/14/2020 7:32 AM CSTPlease address encounter opened greater than 48 hours. elephone Encounter - Ruba English RN - 03/10/2020 10:32 AM CDTRN returned patient call, name and verified. Patient states that symptoms started on Saturday. Patient complaints are vaginal itching and bleeding from the labial/vulvar area. RN advised patient thatshe would need to be seen in the clinic for these symptoms. Patient requests to be scheduled with another provider for sooner than 03/23. Call disconnected when RN transferring to [facility] for scheduling. PSS attempted to call back and call went to voicemail, PSS left message to return call for appointment. Ruba English RN 03/10/2020 10:41 AM Telephone Encounter - Renea Dobbins - 03/10/2020 9:29 AM CDTPatient is calling stating that she has been having vaginal itching and spotting since Saturday. Patient has been scheduled for the first available on 03/23/20, but would like to talk to a nurse. documented in this encounter Plan of Treatment Date Type Specialty Care Team Description 04/11/2020 Nurse Visit Obstetrics & Gynecology Nurse, [facility] Women' s Health Health Maintenance Due Date Last Done Comments [...] Results Not on filedocumented in this encounter Insurance Payer Benefit Plan Subscriber ID Effective Dates Phone Address Type / Group BCBS OF [employer] [place] [id number] 2019-Heather [phone] [address] PPO/POS [place] nt [id number] [place] [address] documented as of this encounter
--- OUTSIDE RECORDS SUMMARY | 2020-05-05 12:37 | XMS REPORT | Summary of Care ---
:1980 Author Organization [facility] Address [address] [place] [address] Care Team Providers Name Role Phone Pcp, Patient Does Not Have A Primary Care Provider +1-000-00 0-0000 Reason for Visit Reason Comments Follow-up ANNE trich Encounter Details Date Type Department Care Team Description 04/11/2020 Nurse Visit [facility] Women's Moore, Oanh cruz MD [address] [place] [address] [address] [place] [address] Trichomoniasis (Primary Healthcare- [place] Nurse, [facility] Women's Health Dx) [address] [facility], [address] [place] [address] Allergies No Known Allergiesdocumented as of this encounter (statuses as of 04/11/2020) Medications Medication Sig Dispensed Refills Start Date [...] as of this encounter (statuses as of 04/11/2020) Active Problems Problem Noted Date Morbid obesity with body mass index of 40.0-49.9 03/10 documented as of this encounter (statuses as of 04/11/2020) Social History Tobacco Use Types Packs/Day Years Used Date Never Smoker Smokeless Tobacco: Never Used Alcohol Use Drinks/Week oz/Week Comments Not Currently 0 Standard drinks or equivalent 0.0 Sex Assigned at Date Recorded Not on file COVID-19 Exposure Response Date Recorded In the last month, have you been in contact with No / Unsure 04/11/2020 8:58 AM SECOND VP HR ASSESSMENT someone who was confirmed or suspected to have Coronavirus / COVID-19? documented as of this encounter Last Filed Vital Signs Vital Sign Reading Time Taken Comments Blood Pressure 123/84 04/11/2020 9:28 AM SECOND VP HR ASSESSMENT Pulse 89 04/11/2020 9:28 AM SECOND VP HR ASSESSMENT Temperature 36.9 C (98.5 F) 04/11/2020 9:28 AM SECOND VP HR ASSESSMENT Respiratory Rate 18 04/11/2020 9:28 AM SECOND VP HR ASSESSMENT Oxygen Saturation - - Inhaled Oxygen Concentration - - Weight 116.6 kg (257 lb) 04/11/2020 9:28 AM SECOND VP HR ASSESSMENT Height 165.1 cm (5' 5") 04/11/2020 9:28 AM SECOND VP HR ASSESSMENT Body Mass Index 42.77 04/11/2020 9:28 AM SECOND VP HR ASSESSMENT documented in this encounter Progress Notes Chanel Mc MA - 04/11/2020 9:00 AM CSTSummary: Test of cure. Patient in office for collection of ANNE for Trichomoniasis. Specimen collected and sent to lab. Chanel Mc MA 04/11/2020 9:34 AM ND VP HR ASSESSMENT documented in this encounter Plan of Treatment Name Type Priority Associated Diagnoses Order S chedule TRICHOMONAS AMPLIFIED ASSAY LAB Routine Trichomoniasi s Ordered: 04/11/2020 Health Maintenance Due Date Last Done Comments [...] Phone Address Type / Group [place] [employer] [place] [id number] 2019-Heather [phone] [address] PPO/POS [facility] [id number] [place] [address] documented as of this encounter
--- NOTE | 2020-05-05 13:38 | RAD REPORT ---
EXAM DESCRIPTION: RAD - Chest Single View - 05/05/2020 1:20 pm CLINICAL HISTORY: syncope Chest pain. COMPARISON: No comparisons FINDINGS: Portable technique limits examination quality. The lungs are grossly clear. The heart is normal in size. No displaced fractures. IMPRESSION: No acute intrathoracic process suspected.
[2020-05-05 13:46] LABS: Basophils % 0.9 % (0-1.3); Lymphocytes % 21.5 % (15.3-44.8); RBC Red Blood Cell Count 2.51 M/uL (3.86-4.86)
[2020-05-05 13:48] LABS: Protime INR 1.04
[2020-05-05 13:59] LABS: Hematocrit 20.9 % (36.0-45.0)
[2020-05-05 14:03] LABS: ALT/SGPT 20 U/L (12-78); AST/SGOT 20 U/L (15-37); Albumin 3.3 g/dL (3.4-5.0); Alkaline Phosphatase 69 U/L (45-117); BUN Blood Urea Nitrogen 9 mg/dL (7-18); Bicarbonate 23 mmol/L (21-32); Bilirubin Direct < 0.1 mg/dL (0-0.2); Bilirubin Total 0.5 mg/dL (0.2-1.0); Glucose Level 98 mg/dL (74-106); Potassium 3.7 mmol/L (3.5-5.1); Sodium Level 142 mmol/L (136-145); Troponin (Emerg Dept Use Only) < 0.02 ng/mL (0.0-0.045)
[2020-05-05 14:04] LABS: Urine Blood 2+ (NEG); Urine Glucose NEGATIVE (NEG); Urine Protein 1+ (NEG); Urine Specific Gravity >1.030 (1.005-1.030); Urine pH 5.5 (5.0-7.0)
[2020-05-05 14:18] LABS: Urine Specific Gravity >1.030 (1.005-1.030)
--- NOTE | 2020-05-05 16:13 | ER ---
Nurse's Notes [facility] Name: Falguni Crenshaw Age: 40 yrs Sex: Female : 1980 Arrival Date: 05/05/2020 Time: 12:43 Bed 15 Private MD: Diagnosis: Anemia in chronic diseases classified elsewhere;Abnormal uterine and vaginal bleeding, unspecified Presentation: 05/05 12:43 Chief complaint: Patient states: Weakness and dizziness since Saturday. Had a syncopal ll1 event today while sitting, lasted about 30 seconds. Reports heavy vaginal bleeding for 1.5 months. VSS for EMS. 20 G R AC, 250 ml NS bolus. Coronavirus screen: Client denies travel out of the [place] in the last 14 days. Ebola Screen: Patient denies travel to an Ebola-affected area in the 21 days before illness onset. Initial Sepsis Screen: Does the patient meet any 2 criteria? HR > 90 bpm. No. Patient's initial sepsis screen is negative. Does the patient have a suspected source of infection? No. Patient's initial sepsis screen is negative. Risk Assessment: Do you want to hurt yourself or someone else? Patient reports no desire to harm self or others. Onset of symptoms was April 30, 2020. 12:43 Method Of Arrival: EMS ll1 12:43 Acuity: NILESH 3 ll1 ERP BUSINESS ANALYST: 15:07 LMP 03/30/2020 ca1 Historical: - Allergies: 12:46 No Known Allergies; ll1 - PMHx: 12:46 None; ll1 - PSHx: 12:46 Cholecystectomy; ll1 - Immunization history:: Flu vaccine is not up to date. - Social history:: Smoking status: Patient denies any tobacco usage or history of. Screenin:50 Abuse screen: Denies threats or abuse. Denies injuries from another. Nutritional ca1 screening: No deficits noted. Tuberculosis screening: No symptoms or risk factors identified. Fall Risk None identified. Assessment: 12:50 General: Appears in no apparent distress. comfortable, Behavior is calm, cooperative, ca1 appropriate for age. Pain: Denies pain. Neuro: Level of Consciousness is awake, alert, obeys commands, Oriented to person, place, time, situation, Reports a syncopal episode. Cardiovascular: Heart tones S1 S2 present Capillary refill < 3 seconds Patient's skin is warm and dry. Rhythm is sinus rhythm. Respiratory: Airway is patent Respiratory effort is even, unlabored, Respiratory pattern is regular, symmetrical, Breath sounds are clear bilaterally. GI: Abdomen is flat, non-distended, Bowel sounds present X 4 quads. Abd is soft and non tender X 4 quads. : No signs and/or symptoms were reported regarding the genitourinary system. EENT: No signs and/or symptoms were reported regarding the EENT system. Derm: Skin is intact, is healthy with good turgor, Skin is pink, warm \T\ dry. Musculoskeletal: Circulation, motion, and sensation intact. Capillary refill < 3 seconds. 13:42 Reassessment: Patient appears in no apparent distress at this time. Patient and/or ca1 family updated on plan of care and expected duration. Pain level reassessed. Patient is alert, oriented x 3, equal unlabored respirations, skin warm/dry/pink. 14:57 Reassessment: Patient appears in no apparent distress at this time. Patient and/or ca1 family updated on plan of care and expected duration. Pain level reassessed. Patient is alert, oriented x 3, equal unlabored respirations, skin warm/dry/pink. 15:58 Reassessment: Patient appears in no apparent distress at this time. Patient and/or ca1 family updated on plan of care and expected duration. Pain level reassessed. Patient is alert, oriented x 3, equal unlabored respirations, skin warm/dry/pink. 16:55 Reassessment: Patient appears in no apparent distress at this time. Patient and/or ca1 family updated on plan of care and expected duration. Pain level reassessed. Patient is alert, oriented x 3, equal unlabored respirations, skin warm/dry/pink. 17:55 Reassessment: Patient appears in no apparent distress at this time. Patient and/or ca1 family updated on plan of care and expected duration. Pain level reassessed. Patient is alert, oriented x 3, equal unlabored respirations, skin warm/dry/pink. 18:50 Reassessment: Patient appears in no apparent distress at this time. Patient is alert, ca1 oriented x 3, equal unlabored respirations, skin warm/dry/pink. [place], ED hospice patient care secretary per RUTH ANN Mena RN BT to be started in the ER before sending pt to Hospital ROOM per Dr. Kim. 19:50 Reassessment: Patient appears in no apparent distress at this time. Patient and/or ca1 family updated on plan of care and expected duration. Pain level reassessed. Patient is alert, oriented x 3, equal unlabored respirations, skin warm/dry/pink. 20:09 Reassessment: Followed up blood from Blood bank, spoke with Lisa, will reprint and ca1 send the Blood form to ER. 21:12 Reassessment: Patient appears in no apparent distress at this time. Patient and/or ca1 family updated on plan of care and expected duration. Pain level reassessed. Patient is alert, oriented x 3, equal unlabored respirations, skin warm/dry/pink. 22:20 Reassessment: Patient appears in no apparent distress at this time. Patient and/or ca1 family updated on plan of care and expected duration. Pain level reassessed. Patient is alert, oriented x 3, equal unlabored respirations, skin warm/dry/pink. 23:30 Reassessment: Patient appears in no apparent distress at this time. Patient and/or ca1 family updated on plan of care and expected duration. Pain level reassessed. Patient is alert, oriented x 3, equal unlabored respirations, skin warm/dry/pink. Vital Signs: 12:43 BP 121 / 75; Pulse 96; Resp 18; Temp 98.1; Pulse Ox 100% ; Weight 110.22 kg; Height 5 ll1 ft. 5 in. (165.10 cm); Pain 0/10; 13:42 BP 110 / 73; Pulse 99; Resp 16 S; Pulse Ox 100% on R/A; ca1 14:57 BP 113 / 64; Pulse 120; Resp 17 S; Pulse Ox 100% on R/A; ca1 15:06 Pulse 105; ca1 15:58 BP 130 / 74; Pulse 104; Resp 20 S; Pulse Ox 100% on R/A; ca1 16:02 BP 123 / 77 Supine; Pulse 105; Resp 18 S; Pulse Ox 100% on R/A; ca1 16:04 BP 108 / 64 Sitting; Pulse 111; Resp 18 S; Pulse Ox 100% on R/A; ca1 16:06 BP 97 / 63 Standing; Pulse 118; Resp 18 S; Pulse Ox 100% on R/A; ca1 17:00 BP 115 / 1; Pulse 90; Resp 18 S; Pulse Ox 100% on R/A; ca1 17:55 BP 105 / 62; Pulse 99; Resp 18 S; Pulse Ox 99% on R/A; ca1 18:50 BP 115 / 73; Pulse 90; Resp 15 S; Pulse Ox 99% on R/A; ca1 19:50 BP 116 / 72; Pulse 105; Resp 16 S; Pulse Ox 99% on R/A; ca1 20:55 BP 122 / 70; Pulse 94; Resp 16 S; Pulse Ox 100% on R/A; ca1 22:21 BP 118 / 68; Pulse 88; Resp 16 S; Pulse Ox 100% on R/A; ca1 23:30 BP 114 / 86; Pulse 89; Resp 17 S; Pulse Ox 100% on R/A; ca1 12:43 Body Mass Index 40.44 (110.22 kg, 165.10 cm) ll1 ED Course: 12:43 Patient arrived in ED. ll1 12:44 Anabelle Salgado, JES is Primary Nurse. ca1 12:46 Triage completed. ll1 12:46 Jones Poe PA is PHCP. cp 12:46 Jones Miranda MD is Attending Physician. cp 12:46 Arm band placed on Patient placed in an exam room, on a stretcher. ll1 12:50 Patient has correct armband on for positive identification. Placed in gown. Bed in low ca1 position. Call light in reach. Side rails up X2. business system manager on. Pulse ox on. NIBP on. Warm blanket given. 13:00 Maintain EMS IV. Dressing intact. Good blood return noted. Site clean \T\ dry. Gauge \T\ ca 1 site: 20 G RAC. 13:20 XRAY Chest (1 view) In Process Unspecified. EDMS 13:40 Initial lab(s) drawn, by co, sent to lab. Urine collected: clean catch specimen, clear. ca1 Inserted saline lock: 20 gauge in left antecubital area, using aseptic technique. Blood collected. 14:57 Assist provider with pelvic exam: Set up pelvic tray. Performed by Jones DUKES ca1 Patient tolerated well. 15:22 US Transvaginal Study (Probe) In Process Unspecified. EDMS 16:12 Magdi Kim MD is Hospitalizing Provider. cp 16:50 Consent for blood and/or blood product transfusion explained by physician, signed by ca1 patient. 17:48 Type And Screen Sent. ca1 17:58 Patient admitted, IV remains in place. intact. sv 05/06 00:00 Report given to JES Kilgore at [facility]. [facility] Administered Medications: 05/05 14:45 Not Given (Physician Discretion): morphine 2 mg IVP once; (PAIN>8) RASS on ADMN: cp Combtv4, Very Agttd3, Agttd2, Rstlss1, AlertClm0, Drwsy-1, LtSdtn-2, ModSdtn-3, DpSdtn-4, UnArsble-5 x2 Medication: 20:40 Blood products: PRBCs X 1 unit given. See transfusion record. [facility] Outcome: 16:13 Decision to Hospitalize by Provider. cp 17:58 Admitted to [facility], accompanied by tech, via wheelchair, room 278, with chart, Report sv called to Mickie ANDRE 17:58 Condition: stable 17:58 Instructed on the need for admit. 23:46 Patient left the ED. 05/06 00:04 Admitted to [facility], accompanied by nurse, accompanied by tech, via stretcher, room 270, ca1 with chart, Other with Blood Transfusion Report called to given to JES Kilgore Condition: stable Instructed on the need for admit. Signatures: Dispatcher [employer] Trina Bazan RN RN Kristian Guan RN RN Jones Poe PA PA cp Anabelle Salgado RN RN ca1 Andrei Davis RN RN ll1 Corrections: (The following items were deleted from the chart) 05/05 13:10 12:50 Pulse ox on. NIBP on. ca1 ca1 20:04 18:50 Reassessment: Patient appears in no apparent distress at this time. Patient is ca1 alert, oriented x 3, equal unlabored respirations, skin warm/dry/pink. [place], ED hospice patient care secretary per RUTH ANN Mena RN BT to be started in the ER before sending pt to Hospital ROOM ca1
--- NOTE | 2020-05-05 16:13 | EDPHYS ---
Physician Documentation [facility] Name: Falguni Crenshaw Age: 40 yrs Sex: Female : 1980 Arrival Date: 05/05/2020 Time: 12:43 Bed 15 Private MD: ED Physician Jones Miranda HPI: 05/05 13:00 This 40 yrs old Black Female presents to ER via EMS with complaints of Syncope. cp 13:00 The patient has experienced syncope, lost consciousness. Onset: The symptoms/episode cp began/occurred today. Duration: This was a single episode, that lasted an unknown period of time. Context: occurred at home, occurred while the patient was sitting, Just prior to the episode the patient experienced lightheadedness. Associated injury: The patient did not suffer any apparent associated injury. Associated signs and symptoms: Pertinent negatives: abdominal pain, chest pain, headache, numbness, palpitations, weakness. 13:00 Current symptoms: Currently, the patient is not experiencing any symptoms, the patient cp feels back to baseline. Patient reports intermittent heavy vaginal bleeding times 1 month. Patient reports today she is having mild bleeding. EPIC AMBULATORY ANALYSTS: 15:07 LMP 03/30/2020 ca1 Historical: - Allergies: 12:46 No Known Allergies; ll1 - PMHx: 12:46 None; ll1 - PSHx: 12:46 Cholecystectomy; ll1 - Immunization history:: Flu vaccine is not up to date. - Social history:: Smoking status: Patient denies any tobacco usage or history of. ROS: 13:05 Constitutional: Negative for body aches, chills, fever, poor PO intake. cp 13:05 Eyes: Negative for injury, pain, redness, and discharge. cp 13:05 ENT: Negative for ear pain, sore throat, difficulty swallowing, difficulty handling secretions. 13:05 Cardiovascular: Negative for chest pain, edema, palpitations. 13:05 Respiratory: Negative for cough, shortness of breath, wheezing. 13:05 Abdomen/GI: Negative for abdominal pain, nausea, vomiting, and diarrhea, black/tarry stool, rectal bleeding. 13:05 Back: Negative for pain at rest, pain with movement. 13:05 : Positive for vaginal bleeding, Negative for urinary symptoms, pelvic pain. 13:05 Neuro: Positive for syncope, Negative for altered mental status, dizziness, weakness. 13:05 All other systems are negative. Exam: 13:05 ECG was reviewed by the Attending Physician. cp 13:10 Constitutional: The patient appears in no acute distress, alert, awake, cp non-diaphoretic, non-toxic, well developed, well nourished, obese. 13:10 Head/Face: Normocephalic, atraumatic. cp 13:10 Eyes: Periorbital structures: appear normal, Pupils: equal, round, and reactive to light and accomodation, Extraocular movements: intact throughout, Conjunctiva: exudate, bilaterally, injected, bilaterally, Sclera: no appreciated abnormality, Lids and lashes: appear normal, bilaterally. 13:10 ENT: External ear(s): are unremarkable, Nose: is normal, Mouth: Lips: moist, Oral mucosa: moist, Posterior pharynx: Airway: no evidence of obstruction, patent. 13:10 Neck: ROM/movement: is normal, is supple, without pain, no range of motions limitations. 13:10 Chest/axilla: Inspection: normal, Palpation: is normal, no crepitus, no tenderness. 13:10 Cardiovascular: Rate: normal, Rhythm: regular, Heart sounds: murmur, not appreciated, Edema: is not appreciated, JVD: is not appreciated. 13:10 Respiratory: the patient does not display signs of respiratory distress, Respirations: normal, no use of accessory muscles, no retractions, labored breathing, is not present, Breath sounds: are clear throughout, no decreased breath sounds. 13:10 Abdomen/GI: Inspection: abdomen appears normal, Bowel sounds: active, all quadrants, Palpation: abdomen is soft and non-tender, in all quadrants, rebound tenderness, is not appreciated, involuntary guarding, is not appreciated. 13:10 Back: pain, is absent, ROM is normal. 13:10 Neuro: Orientation: to person, place \T\ time. Mentation: is normal, Cerebellar function: is grossly normal, Motor: moves all fours, strength is normal, Sensation: is normal. 14:45 : Pelvic Exam: External exam: is normal, Speculum exam: mild bleeding, os that is cp closed, the nurse was present for the exam, Rectal exam: Stool: brown, Guaiac testing: results were negative for occult blood. Vital Signs: 12:43 BP 121 / 75; Pulse 96; Resp 18; Temp 98.1; Pulse Ox 100% ; Weight 110.22 kg; Height 5 ll1 ft. 5 in. (165.10 cm); Pain 0/10; 13:42 BP 110 / 73; Pulse 99; Resp 16 S; Pulse Ox 100% on R/A; ca1 14:57 BP 113 / 64; Pulse 120; Resp 17 S; Pulse Ox 100% on R/A; ca1 15:06 Pulse 105; ca1 15:58 BP 130 / 74; Pulse 104; Resp 20 S; Pulse Ox 100% on R/A; ca1 16:02 BP 123 / 77 Supine; Pulse 105; Resp 18 S; Pulse Ox 100% on R/A; ca1 16:04 BP 108 / 64 Sitting; Pulse 111; Resp 18 S; Pulse Ox 100% on R/A; ca1 16:06 BP 97 / 63 Standing; Pulse 118; Resp 18 S; Pulse Ox 100% on R/A; ca1 17:00 BP 115 / 1; Pulse 90; Resp 18 S; Pulse Ox 100% on R/A; ca1 17:55 BP 105 / 62; Pulse 99; Resp 18 S; Pulse Ox 99% on R/A; ca1 18:50 BP 115 / 73; Pulse 90; Resp 15 S; Pulse Ox 99% on R/A; ca1 19:50 BP 116 / 72; Pulse 105; Resp 16 S; Pulse Ox 99% on R/A; ca1 20:55 BP 122 / 70; Pulse 94; Resp 16 S; Pulse Ox 100% on R/A; ca1 22:21 BP 118 / 68; Pulse 88; Resp 16 S; Pulse Ox 100% on R/A; ca1 23:30 BP 114 / 86; Pulse 89; Resp 17 S; Pulse Ox 100% on R/A; ca1 12:43 Body Mass Index 40.44 (110.22 kg, 165.10 cm) ll1 MDM: 12:49 Patient medically screened. [facility] 15:00 Physician consultation: Magdi Kim MD was called at 15:00, left message on voicemail. 15:00 Data reviewed: vital signs, nurses notes, lab test result(s), EKG, radiologic studies, cp plain films, ultrasound, I have discussed the patient's presentation/case with the attending Emergency Department Physician; and as a result, I will admit patient. 15:00 Test interpretation: by ED physician or midlevel provider: ECG. Counseling: I had a cp detailed discussion with the patient and/or guardian regarding: the historical points, exam findings, and any diagnostic results supporting the discharge/admit diagnosis, lab results, radiology results, the need for further work-up and treatment in the hospital. 15:36 Physician consultation: Magdi Kim MD was called at 15:36, regarding admission, cp patient's condition, left message on voicemail. 16:08 Physician consultation: Magdi Kim MD was contacted at 16:08, regarding admission, cp [facility], patient's condition. 05/05 13:06 Order name: LFT's; Complete Time: 14:07 cp 05/05 13:06 Order name: Basic Metabolic Panel; Complete Time: 14:07 cp 05/05 13:06 Order name: CBC with Diff; Complete Time: 14:07 cp 05/05 13:06 Order name: Magnesium; Complete Time: 14:07 cp 05/05 13:06 Order name: PT-INR; Complete Time: 14:07 cp 05/05 13:06 Order name: Troponin (emerg Dept Use Only); Complete Time: 14:07 cp 05/05 13:06 Order name: D-Dimer; Complete Time: 14:07 cp 05/05 14:01 Order name: Urine Dipstick--Ancillary (enter results); Complete Time: 14:07 dh3 05/05 14:07 Order name: Urine --Ancillary (enter results); Complete Time: 14:34 dh3 05/05 17:02 Order name: Basic Metabolic Panel EDMS 05/05 17:02 Order name: Basic Metabolic Panel EDMS 05/05 17:02 Order name: CBC with Automated Diff EDMS 05/05 17:02 Order name: CBC with Automated Diff EDMS 05/05 17:13 Order name: Type And Screen ca1 05/05 12:47 Order name: Orthostatics; Complete Time: 16:09 cp 05/05 12:47 Order name: EKG; Complete Time: 12:47 cp 05/05 12:47 Order name: EKG - Nurse/Tech; Complete Time: 13:02 cp 05/05 12:47 Order name: Urine Dipstick-Ancillary (obtain specimen); Complete Time: 13:39 cp 05/05 12:47 Order name: Urine Test (obtain specimen); Complete Time: 13:39 05/05 13:06 Order name: XRAY Chest (1 view); Complete Time: 14:07 05/05 13:06 Order name: Cardiac monitoring; Complete Time: 13:10 05/05 13:06 Order name: IV Saline Lock; Complete Time: 13:39 05/05 13:06 Order name: Labs collected and sent; Complete Time: 13:39 05/05 13:06 Order name: O2 Per Protocol; Complete Time: 13:39 05/05 13:06 Order name: O2 Sat Monitoring; Complete Time: 13:39 05/05 14:12 Order name: Pelvic Exam Setup; Complete Time: 14:39 05/05 14:35 Order name: US Transvaginal Study (Probe) 05/05 16:41 Order name: Transfuse: 2 units now; Complete Time: 20:55 05/05 17:02 Order name: Regular EDMS EC:05 Rate is 93 beats/min. Rhythm is regular. SC interval is normal. QRS interval is normal. cp QT interval is normal. T waves are Inverted in lead aVR. Interpreted by me. Reviewed by me. Administered Medications: 14:45 Not Given (Physician Discretion): morphine 2 mg IVP once; (PAIN>8) RASS on ADMN: cp Combtv4, Very Agttd3, Agttd2, Rstlss1, AlertClm0, Drwsy-1, LtSdtn-2, ModSdtn-3, DpSdtn-4, UnArsble-5 x2 Disposition: 05/05/20 16:13 Hospitalization ordered by Magdi Kim for Observation. Preliminary diagnosis are Anemia in chronic diseases classified elsewhere, Abnormal uterine and vaginal bleeding, unspecified. - [facility]. - Status is Observation. sg - Condition is Stable. - Problem is new. - Symptoms have improved. Addendum: 05/07/2020 11:39 Co-signature as Attending Physician, Jones Miranda MD I agree with the assessment and c yost plan of care. Signatures: Dispatcher [employer] EDMS Kristian Guan RN RN sg Anderson, Corey, MD MD cha Martinez, Eric em1 Jones Poe PA PA cp Lewis, Lynsay, RN RN ll1 Corrections: (The following items were deleted from the chart) 05/05 17:46 16:13 Hospitalization Ordered by Magdi Kim MD for Observation. Preliminary em1 diagnosis is Anemia in chronic diseases classified elsewhere; Abnormal uterine and vaginal bleeding, unspecified. Bed requested for [facility]. Status is Observation. Condition is Stable. Problem is new. Symptoms have improved. cp 23:46 17:46 05/05/2020 16:13 Hospitalization Ordered by Magdi Kim MD for Observation. sg Preliminary diagnosis is Anemia in chronic diseases classified elsewhere; Abnormal uterine and vaginal bleeding, unspecified. Bed requested for [facility]. Status is Observation. Condition is Stable. Problem is new. Symptoms have improved. em1
--- NOTE | 2020-05-05 16:28 | RAD REPORT ---
EXAM DESCRIPTION: US - Transvaginal Study Probe - 05/05/2020 3:22 pm CLINICAL HISTORY: VAGINAL BLEEDING Pelvic pain. COMPARISON: No comparisons FINDINGS: The uterus is normal in size, shape and echotexture. The uterus measures 9.7 x 5.3 x 5.2 c m The endometrial stripe measures 13 mm containing soft tissue echogenic material is well as mild fluid . This is suspicious endometrial polyp. The left ovary is obscured by bowel gas. The left ovary measures 2.7 x 2.3 x 2.3 cm. No ovarian or pa rovarian lesions. No adnexal masses. Normal Doppler blood flow was demonstrated to the left ovary. No significant pelvic ascites. IMPRESSION: Findings suspicious for an endometrial polyp are noted.Suggest direct visualization with hysteroscopy for followup.
[2020-05-05] MEDS ORDERED: ACETAMINOPHEN 500 MG TAB PO PRN (17:00)
[2020-05-05] MEDS ORDERED: ONDANSETRON 4 MG/2 ML VIAL IV PRN (17:00)
[2020-05-05] MEDS ORDERED: NA CHLORIDE 0.9% 250 ML ONE ×2 (20:38→23:40)
[2020-05-05 21:56] VITALS: O2SAT 100
[2020-05-06 00:34] VITALS: BMI 40.2
[2020-05-06] MEDS ORDERED: Oxycodone HCl/Acetaminophen 1 TAB TAB PO PRN (01:24)
[2020-05-06] MEDS ORDERED: D5LR 1,000 ML IV SCH (02:00)
[2020-05-06] MEDS ORDERED: Ringers Lactate 1,000 ML IV SCH (02:00)
--- NOTE | 2020-05-06 07:48 | PREOPHP ---
Date of Admission: 05/05/2020 40-year-old 2, para 2, admitted through the emergency room with severe vaginal bleeding. Marianela resendez states that she is having normal menstrual periods until late March around the , started on her which she thought was her menstrual period and has continued bleeding since then. Liza martinez, came to our emergency room, was noted to be tachycardic and slightly orthostatic. Hemoglobin a t that time was around 6.2 to 6.5. She was admitted, has been given 2 units of packed cells, hemoglo bin is now in the 8.8 range and she is feeling much better. Bleeding is minimal at this point. Ultr asound examination showed what probably is an endometrial polyp definitely a thickened endometrium. The patient has a personal doctor, Dr. Moore at [facility] and wishes to be seen by her for followup. Family History: Noncontributory. Past Medical History: Noncontributory. She is not having intercourse and is not on any type of control. Allergies: SHE HAS NO ALLERGIES. Physical Examination: Done in the emergency room was completely clear. Heart/Lungs: Patient says that her heart and lungs are clear to auscultation. Abdomen: Soft. She is not in any pain. Extremities: Clear without edema, cyanosis, or clubbing. Pelvic: Not done this morning. We will ambulate the patient and if she is ambulating well, dismiss her to follow up with Dr. Moore on Saturday. She knows that she needs a hysteroscopy, D and C, and I suggested possibly insertion of a Mi vinnie IUD to prevent further bleeding problems in the future, all of this is between her and Dr. Moore. She is quite stable this morning. We will ambulate and then decide if she can go home this morning, but it looks like she will. Diagnoses: Dysfunctional uterine bleeding, possible endometrial polyp, now stable after 2 units of b lood. JONATAN/CHRISTIAN Voice ID: [id number]
[2020-05-06 08:26] VITALS: BP 123/69; TEMP 97.3
[2020-05-06] MEDS ORDERED: INFLUENZA VACCINE (for 3y+) 0.5 ML DOSE IMVAC ONE (15:00)
== END 2020-05-06 10:03 | disposition home or self-care (01) ==
LOC: ER 12:34 → 2ND-WC 16:57
PROVIDERS: ADMIT Specialist; ATTEND Specialist
DX: N93.8 Other specified abnormal uterine and vaginal bleeding (principal); R00.0 Tachycardia, unspecified; Z23 Encounter for immunization
CPT/HCPCS: 93005; 85025; 80048; 36415; 86900; 83735; 86850; 81025; 85610; 86901; 85379; 80076; 85018; 81003; 84484; 71045; 76830; 36430; 99285; P9016 ×2; J7050 ×2